=== PATIENT | male | born 1955 | race Caucasian/White ===

== ENCOUNTER 2019-01-30 09:28 | Inpatient (IN) ==
[~2019-01-30 09:28] MED LIST: BUPIVACAINE HCL/EPINEPHRINE 50 ML VIAL IJ PRN
[2019-01-30] MEDS: RINGER'S SOLUTION,LACTATED 1,000 ML IV PRN ×5 (10:05→23:14)
[2019-01-30] MEDS ORDERED: ceFAZolin SODIUM 1 GM VIAL IV ONE (10:28)
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
[2019-01-30] MEDS: PIPERACILLIN SODIUM/TAZOBACTAM 3.375 GM in DEXTROSE 5 % IN WATER 100 ML IV SCH ×4 (11:55→20:15)
--- NOTE | 2019-01-30 13:51 | ANES ---
Post Anesthesia Discharge - Transfer of Care Transfer of Care handoff given to nurse: Yes - Discharge from PACU Discharge from PACU when meets criteria: Yes - Awake in PACU.
[2019-01-30] MEDS ORDERED: ONDANSETRON HCL/PF 2 MG/ML VIAL IV PRN (13:56)
[2019-01-30] MEDS ORDERED: diphenhydrAMINE HCL 50 MG/ML VIAL IV PRN ×2 (14:01→16:50)
[2019-01-30] MEDS ORDERED: HYDROmorphone HCL IN 0.9% NACL 50 ML CARTRIDGE IV PRN (14:01)
[2019-01-30] MEDS ORDERED: NALOXONE HCL 1 MG/1 ML SYRG IV PRN ×2 (14:01→16:50)
[2019-01-30] MEDS ORDERED: HYDROmorphone HCL 1 MG/ML DISP.SYRIN IV ONE (14:10)
--- NOTE | 2019-01-30 14:27 | ANES ---
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 - N/V Assessment Nausea/Vomiting Presence: None Dehydration:: No
[2019-01-30] MEDS: HYDROmorphone HCL 1 MG/ML DISP.SYRIN IV PRN ×3 (14:38→16:55)
[2019-01-30] MEDS ORDERED: ENOXAPARIN SODIUM 40 MG/0.4 ML SYRG SC SCH (16:00)
--- NOTE | 2019-01-30 16:47 | OR ---
Operative Report - Dictated Report Narrative: OPERATIVE REPORT DATE OF OPERATION: 01/30/2019 PREOPERATIVE DIAGNOSIS: History of colon polyp. Right inguinal hernia POSTOPERATIVE DIAGNOSIS: Colon perforation. OPERATION: Colonoscopy. Exploratory laparotomy with repair of sigmoid colon perforation SURGEON: Bety Weinstein MD ANESTHESIA: General endotracheal, Adonis Padilla CRNA INDICATIONS FOR PROCEDURE: The patient is a 63-year-old male who had removal of a tubular adenoma in 2010. He is due for colon surveillance. He has also developed an enlarging and increasingly symptomatic right inguinal hernia. He has brought for colonoscopy and repair of right inguinal hernia. FINDINGS: Sharp angulation in the colon at approximately 40 cm with a free perforation immediately noted. Perforation of the sigmoid colon, successfully primarily repaired. Adhesions throughout the upper abdomen from previous pancreatitis and inflammatory adhesion to the sigmoid colon with angulation (released) NARRATIVE OF PROCEDURE: The patient was identified preoperatively. The surgical site was marked. Prior to the administration of anesthetic a multidisciplinary timeout was observed. With the patient initially supine, SCDs were applied and general endotracheal anesthetic administered. The patient was then placed in the left lateral position with appropriate padding and monitoring. Inspection of the perineum revealed no evidence of pilonidal disease or skin breakdown. The external appearance of the anus was normal. Sphincter tone was good. The flexible fiberoptic colonoscope was inserted into the rectum which was insufflated with air. The rectal mucosa and submucosal vascular pattern appeared normal. There was a small amount of liquid stool remaining however this could be suctioned completely for a diagnostic exam. The scope was advanced proximally through the sigmoid colon which contained at least one non- impacted noninflamed diverticular opening. The scope was advanced to approximately 40 cm where there was a very sharp angulation. By advancing and w ithdrawing the scope, the end of the scope was successfully maneuvered around the angulation and a long stretch of normal colon could be seen proximally. Proximal advancement of the scope could not be accomplished by gentle direct advancement, so the scope was gradually withdrawn until the tip of the scope was well around the corner. Proximal advancement could still not be accomplished. The scope was therefore withdrawn and readvanced with the same result. As the scope was withdrawn again, the scope perforated the colon, which was noted immediately. The scope was therefore withdrawn carefully into the colon, withdrawn down the colon under suction, withdrawn from the patient and this portion of the procedure terminated. The patient was then returned to the supine position and general anesthetic maintained while I had a conference with the patient's (ADIA). I explained the perforation and the need for an exploratory laparotomy to repair the colon--primarily if possible, however with the possibility of a colostomy if needed. After interactive discussion, her questions were answered to her apparent satisfaction and verbal consent for the procedure was obtained from her. A nasogastric tube was then placed. A Patel catheter was inserted sterilely. The patient's abdomen was prepped with Betadine solution and a generous operating field isolated with 4 sterile towels. The remainder the patient was covered with a sterile disposable drape. A midline surgical incision was made skirting to the right of the umbilicus. Dissection was carried through subcutaneous tissue with electrocautery until the fascia of the linea alba was encountered. This was incised. The peritoneum was then elevated and incised to allow entry into the abdominal cavity under direct vision. The omentum and small intestine immediately encountered appeared normal. There was not any appreciable fluid, visible spillage or odor. A Bookwalter self-retaining retractor was then placed in the abdomen explored. There were adhesions throughout the upper abdomen compatible with the patient's previous pancreatitis, precluding access to the stomach or direct palpation of the nasogastric tube. By dividing omental adhesions to the anterior peritonum in the left upper quadrant, the greater omentum could be reflected revealing normal appearing small intestine. The small intestine was packed into the right side of the abdomen with moist laparotomy pads and the left colon identified. As this was traced distally a 1.5 cm area of perforation was encountered. There was no active spillage. The edges of the colon injury appeared viable. The area was covered/secured with a gauze, brought to the midline, and the colon traced proximally and distally. The injury was found to be in the sigmoid colon. The left side of the abdomen and the pelvis were carefully suctioned although again there was no visible gross spillage. No additional injuries were apparent. The injured colon was then isolated and again inspected. It was found to be amenable to a primary repair. Serosal sutures of 3-0 GI silk were used to approximate the colon proximal and distal to the injury. A SHEILA stapler was then placed through the perforation into the proximal and distal bowel and a functioning side to side anastomosis created. The interior was inspected and the staple line was seen to be hemostatic and the lumen of good caliber. The perforation was then closed with a TA 60 stapler such that the staple line was in normal healthy bowel. The anastomosis appeared gas and liquid tight and was of good caliber. The staple lines were then treated with free Betadine. At this juncture gloves were changed and previously used instruments and laparotomy pads were passed from the field. The anastomosis was protected with several interrupted sutures of 3-0 GI silk which secured epiploic fat over the anastomosis. The abdomen was then irrigated with 1 L of bacitracin-containing saline and suctioned clean including the most dependent portion of the pelvis. At this juncture it was noted that there was an adhesion from previous inflammation which had tethered the sigmoid colon in the pelvis. This could be lysed under direct vision which allowed the sigmoid colon to be freely mobile. After ensuring hemostasis and a correct sponge needle and instrument count, attention was turned to closing the abdomen. The fascia and peritoneum were approximated with a single layer of interrupted sutures of #1 Vicryl. The subcutaneous tissue was then treated with free Betadine and irrigated with saline. Subcutaneous tissue was then approximated with interrupted sutures of 3-0 chromic. The skin was secured with charles. The operative site was washed and dried. A dressing of 4 x 4's and Medipore tape was applied. The operative procedure was terminated at this point. The patient tolerated the anesthetic and procedure well. There was minimal blood loss (less than 25 mL). No specimens were submitted. The patient was transferred to the recovery room awake, extubated, and in stable condition. Reviewed and electronically signed
[2019-01-30] MEDS ORDERED: HYDROmorphone HCL 1 MG/ML DISP.SYRIN ONE (16:54)
[2019-01-30] MEDS: HYDROmorphone HCL IN 0.9% NACL 50 ML CARTRIDGE IV PRN (17:38)
[2019-01-30] MEDS: ENOXAPARIN SODIUM 40 MG/0.4 ML SYRG SC SCH (17:51)
--- NOTE | 2019-01-30 19:17 | PN ---
Dictated Progress Note - Date and Time Seen: Date: 01/30/19 Time: 19:16 - Progress Note Narrative: Vital Signs - Last Taken Temp 36.3 C 01/30/19 14:25 Pulse 107 H 01/30/19 18:10 Resp 18 01/30/19 18:10 BP 115/63 01/30/19 18:10 Pulse Ox 91 L 01/30/19 18:10 Comfortable except when he moves. No significant NG output. Good urine output. Will add Protonix. Will start Lovonox due to past hx of PE.
[2019-01-30] MEDS: PANTOPRAZOLE SODIUM 40 MG in NORMAL SALINE 100 ML IV SCH (19:55)
[2019-01-31] MEDS: PIPERACILLIN SODIUM/TAZOBACTAM 3.375 GM in DEXTROSE 5 % IN WATER 100 ML IV SCH ×6 (03:46→20:57)
[2019-01-31] MEDS: RINGER'S SOLUTION,LACTATED 1,000 ML IV PRN ×2 (05:50→17:08)
--- NOTE | 2019-01-31 07:08 | PN ---
Subjective - Date and Time Seen Date: 01/31/19 Time: 07:00 Subjective Narrative: POD#1 Explaratory laparotomy with repair of colon perforation Pain is controlled with EAR NOSE THROAT PHYSICIAN, except when he moves. He slept some. He did dangle on the bedside last night. Objective Objective Narrative: Alert, appears comfortable, essentially no NG tube output (clear). 550 mL urine last shift. - Review of Systems Generalized/Overall Review: Denies: Chills, Fever, Diaphoresis EENTM: Reports: No Symptoms Reported Respiratory: Reports: Other - Uncomfortable when he takes a deep breath, but he does not feel short of breath. Using incentive spirometer Cardiac: Denies: Chest Pain, Palpitations Abdominal: Reports: Other - Incisional discomfort Genitourinary Symptoms: Reports: Other - He is aware of the Patel catheter Musculoskeletal Complaints: Reports: No Symptoms Reported Neurological: Reports: No Symptoms Reported Skin: Reports: No Symptoms Reported - Vitals Vitals: Last Vital Signs Temp 36.4 C 01/31/19 06:05 Pulse 101 H 01/31/19 06:05 Resp 16 01/31/19 06:05 BP 110/66 01/31/19 06:05 Pulse Ox 95 01/31/19 06:05 - Exam Constitutional: Present: Alert, Oriented x3, Cooperative, No distress ENT Exam: Present: normal ENT inspection, other - NG tube appears to be in good position Neck: Present: normal inspection Respiratory: Present: lungs clear, other - Decreased inspiratory effort Cardiovascular/Chest: Present: regular rate, rhythm Abdomen: Present: other - Dressing dry. No bowel sounds /Rectal: Present: Exam deferred Extremity: Present: normal range of motion, normal inspection, no pedal edema Skin Exam: Present: normal color, warm/dry. Absent: diaphoresis Neurologic: Present: victim witness administrator II-XII nml as tested, no motor/sensory deficits Appearance: Present: appropriate appearance, appropriate insight, no memory impairment Eye contact: Present: cooperative, good eye contact, normal speech Thoughts: Present: normal thought pattern Cauti Physician Documentation - Urinary Catheter Management Urethral (Patel) Urethral Indwelling: Yes Reason for Continuing Indwelling Catheter: Measure accurate output Date of Insertion: 01/30/19 Time of Insertion: 11:30 Date of Removal: 01/31/19 - When adequately mobile Assessment/Plan Plan Narrative: Will give clear liquids and clamp tube for 2 hours and then cycle back to LIS. Encourage out of bed (more times for short periods is better). DC Patel when adequately mobile. Encourage pulmonary toilet. - Problems/Diagnosis (1) Colon perforation due to colonoscopy Problem: Acute
[2019-01-31] MEDS ORDERED: METOCLOPRAMIDE HCL 5 MG/ML VIAL IV ONE (07:09)
--- NOTE | 2019-01-31 17:17 | PN ---
Dictated Progress Note - Date and Time Seen: Date: 01/31/19 Time: 17:14 - Progress Note Narrative: Vital Signs - Last Taken Temp 37.1 C 01/31/19 15:00 Pulse 104 H 01/31/19 15:00 Resp 18 01/31/19 15:00 BP 118/69 01/31/19 15:00 Pulse Ox 94 01/31/19 15:00 Pulse still elevated but temp and BP normal. Has tolerated liquids. no significant NG output but no BS. Has been OOB. Patel out, "can feel may need to go". Lungs clear. No percussion tenderness, incisional discomfort. Karson encourage ambulation and pulmonary toilet
[2019-01-31] MEDS: ENOXAPARIN SODIUM 40 MG/0.4 ML SYRG SC SCH (17:40)
[2019-01-31] MEDS: PANTOPRAZOLE SODIUM 40 MG in NORMAL SALINE 100 ML IV SCH (19:00)
[2019-02-01] MEDS: HYDROmorphone HCL IN 0.9% NACL 50 ML CARTRIDGE IV PRN (01:51)
[2019-02-01] MEDS: PIPERACILLIN SODIUM/TAZOBACTAM 3.375 GM in DEXTROSE 5 % IN WATER 100 ML IV SCH ×6 (04:11→22:09)
[2019-02-01] MEDS: RINGER'S SOLUTION,LACTATED 1,000 ML IV PRN ×2 (06:50→21:21)
[2019-02-01] MEDS ORDERED: BISACODYL 10 MG SUPP.RECT RC ONE ×2 (07:36→09:20)
--- NOTE | 2019-02-01 07:39 | PN ---
Subjective - Date and Time Seen Date: 02/01/19 Time: 07:39 Subjective Narrative: POD#2 Explaratory laparotomy with repair of colon perforation Pain is controlled with GROCERY SPECIALIST, He slept Ambulated. No BM/flattus Objective Objective Narrative: Alert, appears comfortable, essentially no NG tube output (clear). voiding without valles. No BS. Abdomen less tender - Review of Systems Generalized/Overall Review: Denies: Chills, Fever EENTM: Reports: No Symptoms Reported Respiratory: Reports: No Symptoms Reported. Denies: Shortness of Breath Cardiac: Denies: Chest Pain, Palpitations Abdominal: Reports: Other - incisional discomfort is improved Genitourinary Symptoms: Reports: No Symptoms Reported Musculoskeletal Complaints: Reports: No Symptoms Reported Neurological: Reports: No Symptoms Reported Skin: Reports: No Symptoms Reported - Vitals Vitals: Last Vital Signs Temp 36.7 C 02/01/19 02:00 Pulse 85 02/01/19 04:00 Resp 16 02/01/19 04:00 BP 118/74 02/01/19 04:00 Pulse Ox 94 02/01/19 04:00 - Exam Constitutional: Present: Alert, Oriented x3, Cooperative, Well nourished, No distress ENT Exam: Present: normal ENT inspection Neck: Present: full range of motion, normal inspection Respiratory: Present: lungs clear Cardiovascular/Chest: Present: regular rate, rhythm Abdomen: Present: other - incision tender, no percussion tenderness, no BS /Rectal: Present: Exam deferred Extremity: Present: normal inspection, no pedal edema, no calf tenderness Skin Exam: Present: normal color Neurologic: Present: procedure writer II-XII nml as tested, no motor/sensory deficits Appearance: Present: appropriate appearance, appropriate insight, neat Eye contact: Present: cooperative, good eye contact, normal speech Thoughts: Present: normal thought pattern Cauti Physician Documentation - Urinary Catheter Management Urethral (Valles) Urethral Indwelling: No Date of Insertion: 01/30/19 Time of Insertion: 11:30 Date of Removal: 01/31/19 - When adequately mobile Assessment/Plan Plan Narrative: Will switch Dilaudid to GROCERY SPECIALIST only and add Percocet with meals and at bedtime. Encourage ambulation. Continue cycle clamping NG around meals and meds. Will recheck later today - Problems/Diagnosis (1) Colon perforation due to colonoscopy Problem: Acute
[2019-02-01] MEDS: oxyCODONE HCL/ACETAMINOPHEN 1 TAB TABLET PO SCH ×3 (11:38→21:51)
--- NOTE | 2019-02-01 18:49 | PN ---
Dictated Progress Note - Date and Time Seen: Date: 02/01/19 Time: 18:48 - Progress Note Narrative: Vital Signs - Last Taken Temp 37.5 C 02/01/19 14:39 Pulse 90 02/01/19 17:32 Resp 14 02/01/19 14:39 BP 110/71 02/01/19 14:39 Pulse Ox 95 02/01/19 17:32 Vital signs remained normal. He is much more comfortable this evening. He has bowel sounds. Encourage out of bed and pulmonary toilet.
[2019-02-01] MEDS: ENOXAPARIN SODIUM 40 MG/0.4 ML SYRG SC SCH (21:26)
[2019-02-01] MEDS: PANTOPRAZOLE SODIUM 40 MG in NORMAL SALINE 100 ML IV SCH (21:43)
[2019-02-02] MEDS: PIPERACILLIN SODIUM/TAZOBACTAM 3.375 GM in DEXTROSE 5 % IN WATER 100 ML IV SCH ×6 (05:08→20:46)
[2019-02-02] MEDS: oxyCODONE HCL/ACETAMINOPHEN 1 TAB TABLET PO SCH ×4 (07:34→21:59)
--- NOTE | 2019-02-02 07:43 | PN ---
Subjective - Date and Time Seen Date: 02/02/19 Time: 07:37 Subjective Narrative: POD#3 Explaratory laparotomy with repair of colon perforation Pain is controlled with Percocet, didn't use WELDING MACHINE OPERATOR THERMIT much. He slept Ambulated. No BM/flattus. Somewhat more NG output but active BS. Objective - Review of Systems Generalized/Overall Review: Denies: Chills, Fever EENTM: Reports: No Symptoms Reported Respiratory: Denies: Cough, Shortness of Breath Cardiac: Denies: Chest Pain Abdominal: Reports: Other - more comfortable Musculoskeletal Complaints: Reports: No Symptoms Reported Neurological: Reports: No Symptoms Reported Skin: Reports: No Symptoms Reported - Vitals Vitals: Last Vital Signs Temp 37.5 C 02/01/19 14:39 Pulse 96 02/02/19 04:54 Resp 14 02/01/19 14:39 BP 110/71 02/01/19 14:39 Pulse Ox 94 02/02/19 04:54 - Exam Constitutional: Present: Alert, Oriented x3, No distress ENT Exam: Present: normal ENT inspection Neck: Present: normal inspection Respiratory: Absent: no respiratory distress Cardiovascular/Chest: Present: regular rate, rhythm Abdomen: Present: soft, other - bowel sounds active, incision healing well. No erythema or collection Extremity: Present: normal inspection, no pedal edema Skin Exam: Present: normal color Neurologic: Present: coiled tubing supervisor II-XII nml as tested, no motor/sensory deficits Appearance: Present: appropriate appearance, appropriate insight, neat Eye contact: Present: cooperative, good eye contact, normal speech Thoughts: Present: normal thought pattern Cauti Physician Documentation - Urinary Catheter Management Urethral (Patel) Urethral Indwelling: No Date of Insertion: 01/30/19 Time of Insertion: 11:30 Date of Removal: 01/31/19 - When adequately mobile Assessment/Plan Plan Narrative: Will encourage ambulation. Second visit at 1730: comfortable, has showered and walked, can "feel gas moving on the left side Continue cycled NG, pulmonary toilet, ambulation - Problems/Diagnosis (1) Colon perforation due to colonoscopy Problem: Acute
[2019-02-02] MEDS: ENOXAPARIN SODIUM 40 MG/0.4 ML SYRG SC SCH (17:25)
[2019-02-02] MEDS: PANTOPRAZOLE SODIUM 40 MG in NORMAL SALINE 100 ML IV SCH (19:35)
[2019-02-03] MEDS: PIPERACILLIN SODIUM/TAZOBACTAM 3.375 GM in DEXTROSE 5 % IN WATER 100 ML IV SCH ×6 (03:20→20:59)
[2019-02-03] MEDS: RINGER'S SOLUTION,LACTATED 1,000 ML IV PRN (03:20)
[2019-02-03] MEDS: oxyCODONE HCL/ACETAMINOPHEN 1 TAB TABLET PO SCH ×4 (07:12→20:43)
--- NOTE | 2019-02-03 07:56 | PN ---
Subjective - Date and Time Seen Date: 02/03/19 Time: 07:55 Subjective Narrative: POD#4 Explaratory laparotomy with repair of colon perforation Pain is controlled with Percocet, didn't use PAYROLL ASSISTANT. He slept Ambulated. No BM/flattus. "Spotted on the bed when sat up" Objective - Review of Systems Generalized/Overall Review: Denies: Chills, Fever EENTM: Reports: No Symptoms Reported Respiratory: Reports: Cough Cardiac: Denies: Chest Pain, Edema, Palpitations Abdominal: Reports: Other - Incisional discomfort. Can feel some gurgling Genitourinary Symptoms: Reports: No Symptoms Reported, Other - Voiding without difficulty Musculoskeletal Complaints: Reports: No Symptoms Reported Neurological: Reports: No Symptoms Reported Skin: Reports: No Symptoms Reported - Vitals Vitals: Last Vital Signs Temp 36.4 C 02/03/19 06:00 Pulse 90 02/03/19 07:21 Resp 16 02/03/19 07:21 BP 115/70 02/03/19 06:00 Pulse Ox 97 02/03/19 07:21 - Exam Constitutional: Present: Alert, Oriented x3, Cooperative, No distress ENT Exam: Present: normal ENT inspection Neck: Present: full range of motion, normal inspection Respiratory: Present: normal breath sounds Cardiovascular/Chest: Present: regular rate, rhythm Abdomen: Present: other - Incision clean. There are few bowel sounds /Rectal: Present: Exam deferred Extremity: Present: normal range of motion, no pedal edema, no calf tenderness Skin Exam: Present: warm/dry Neurologic: Present: health and wellness coach II-XII nml as tested, no motor/sensory deficits Appearance: Present: appropriate appearance, appropriate insight, neat Eye contact: Present: cooperative, good eye contact, normal speech Thoughts: Present: normal thought pattern Cauti Physician Documentation - Urinary Catheter Management Urethral (Patel) Urethral Indwelling: No Date of Insertion: 01/30/19 Time of Insertion: 11:30 Date of Removal: 01/31/19 - When adequately mobile Assessment/Plan Plan Narrative: We will continue cycle clamped NG with liquids until bowel movement/flatus. Continue antibiotics until bowel movement. Encourage ambulation. Encourage pulmonary toilet - Problems/Diagnosis (1) Colon perforation due to colonoscopy Problem: Acute
[2019-02-03] MEDS: ENOXAPARIN SODIUM 40 MG/0.4 ML SYRG SC SCH (17:50)
[2019-02-03] MEDS: PANTOPRAZOLE SODIUM 40 MG in NORMAL SALINE 100 ML IV SCH (20:36)
[2019-02-04] MEDS: PIPERACILLIN SODIUM/TAZOBACTAM 3.375 GM in DEXTROSE 5 % IN WATER 100 ML IV SCH ×6 (04:32→20:28)
[2019-02-04] MEDS: oxyCODONE HCL/ACETAMINOPHEN 1 TAB TABLET PO SCH (06:41)
[2019-02-04] MEDS: RINGER'S SOLUTION,LACTATED 1,000 ML IV PRN (08:06)
--- NOTE | 2019-02-04 08:54 | PN ---
Subjective - Date and Time Seen Date: 02/04/19 Time: 08:50 Subjective Narrative: POD#5 Explaratory laparotomy with repair of colon perforation Pain is controlled with Percocet/occas FORCE ADJUSTMENT SUPERVISOR. He slept Ambulated. Had loose BM and flattus and additional flattus later. Tolerated NG clamped all night. Objective - Review of Systems Generalized/Overall Review: Denies: Chills, Fever EENTM: Reports: No Symptoms Reported Respiratory: Reports: Other - able to cough better today---no production Cardiac: Denies: Chest Pain, Palpitations Abdominal: Reports: Other - incisional pain only Genitourinary Symptoms: Reports: No Symptoms Reported Musculoskeletal Complaints: Reports: No Symptoms Reported Neurological: Reports: No Symptoms Reported Skin: Reports: No Symptoms Reported - Vitals Vitals: Last Vital Signs Temp 36.8 C 02/04/19 07:12 Pulse 83 02/04/19 07:12 Resp 16 02/04/19 07:12 BP 106/62 02/04/19 07:12 Pulse Ox 98 02/04/19 07:12 - Exam Constitutional: Present: Alert, Oriented x3, Cooperative, No distress ENT Exam: Present: normal ENT inspection Neck: Present: full range of motion, normal inspection Respiratory: Present: normal breath sounds Cardiovascular/Chest: Present: regular rate, rhythm Abdomen: Present: other - dressing dry. active bowel sounds /Rectal: Present: Exam deferred Extremity: Present: normal inspection, no pedal edema, no calf tenderness Skin Exam: Present: normal color Neurologic: Present: quality assurance supervisor final II-XII nml as tested, no motor/sensory deficits Appearance: Present: appropriate appearance, appropriate insight, neat Eye contact: Present: cooperative, good eye contact, normal speech Thoughts: Present: normal thought pattern Cauti Physician Documentation - Urinary Catheter Management Urethral (Patel) Urethral Indwelling: No Date of Insertion: 01/30/19 Time of Insertion: 11:30 Date of Removal: 01/31/19 - When adequately mobile Assessment/Plan Plan Narrative: Will DC NG tube and advance to a low-fat diet (he eats 5 meals with 10 to 20 g fat). Will stop FORCE ADJUSTMENT SUPERVISOR and use Percocet only. Encourage ambulation and pulmonary toilet If tolerates diet tentatively home tomorrow. - Problems/Diagnosis (1) Colon perforation due to colonoscopy Problem: Acute
[2019-02-04] MEDS: oxyCODONE HCL/ACETAMINOPHEN 1 TAB TABLET PO PRN ×2 (14:03→20:19)
[2019-02-04] MEDS: ENOXAPARIN SODIUM 40 MG/0.4 ML SYRG SC SCH (18:34)
[2019-02-04] MEDS: PANTOPRAZOLE SODIUM 40 MG in NORMAL SALINE 100 ML IV SCH (18:36)
[2019-02-05] MEDS: PIPERACILLIN SODIUM/TAZOBACTAM 3.375 GM in DEXTROSE 5 % IN WATER 100 ML IV SCH ×2 (04:10)
[2019-02-05] MEDS: oxyCODONE HCL/ACETAMINOPHEN 1 TAB TABLET PO PRN (04:20)
--- NOTE | 2019-02-05 09:38 | DS ---
(1) Colon perforation due to colonoscopy Problem: Resolved Description of Stay: He had a colonoscopy on 01/30/19. There was a colon perforation and he underwent exploratory laparotomy with repair of a sigmoid perforation. Admitted to acute care. NG tube and IV fluids until return of bowel function on POD#5. Patel catheter--removed timely. SCD's, lovenox, and early ambulation for VTE prophylaxis. IV Zosyn. VS remained normal and incision healing well. Tolerated advanced diet. Ambulating independently. Incisional discomfort controlled with [employer] Dilaudid and then po Percocet. Home 02/05/19; instructions given with phone #s to call for questions. Office appointment 02/09/19. FMLA papers given. Rx Percocet 5/325mg#30. Advised use of Miralax to facilitate stooling. Procedures Performed: see notes below - colonoscopy, exploratory laparotomy with repair of colon perforation Discharge Location: Home Disposition: Home self-care Condition: Good Discharge Activity: Activity as tolerated, No Lifting, Other - protect incision Discharge Diet: General/regular food Referrals: Macario Bill MD [Primary Care Provider] - Problem Oriented Discharge Instructions to Patient/Family: Exploratory Laparotomy, Adult Additional Patient Instructions (free text): call for office appointment 02/09/19 Prescriptions (Any new or edited meds): oxyCODONE HCL/ACETAMINOPHEN [Percocet 5 MG/325 MG] 2 tab PO Q6H PRN #30 tab PRN Reason: Pain Complete Home Medications List: Complete Home Medication List: oxyCODONE HCL/ACETAMINOPHEN [Percocet 5 MG/325 MG] 2 tab PO Q6H PRN #30 tab 02/05/19
[2019-02-05 10:53] VITALS: BP 113/71
== END 2019-02-05 12:00 | disposition home or self-care (01) | DRG 909 ==
LOC: SUR 09:28 → MS 13:19
PROVIDERS: ADMIT Surgery; ATTEND Surgery
CPT/HCPCS: 71010; 71045